=== PATIENT | female | born 1965 | race Caucasian/White ===

== ENCOUNTER 2018-02-04 19:43 | Emergency (ER) | payer SELFPAY ==
[~2018-02-04 19:43] MED LIST: LORC10TA PO; Z.0.NO CURRENT MEDS
== END 2018-02-04 20:04 | disposition left against medical advice (07) ==
LOC: NED 19:43
DX: Z53.21 Procedure and treatment not carried out due to patient leaving prior to being seen by health care provider (principal)
CPT/HCPCS: 99281